=== PATIENT | female | born 1985 | race Caucasian/White ===

== ENCOUNTER 2022-03-30 17:58 | Emergency (ER) | payer MEDICAID ==
[~2022-03-30] VITALS: Ht 157.5 cm; Wt 84.8 kg
--- NOTE | 2022-03-30 18:10 | NUR ---
36 YRSold femal walking IN to ED s/p MVI after mednght MOVING ALL extramity no weeknss no numbness c/o neck pain no
--- NOTE | 2022-03-30 18:25 | NUR ---
sayda horton sent to lab
[2022-03-30] MEDS ORDERED: IBUPROFEN 600 MG TABLET PO ONE (18:30)
--- NOTE | 2022-03-30 18:30 | NUR ---
TO CT SACN OF HEAD AND NECK
[2022-03-30] MEDS ORDERED: IBUPROFEN 600 MG TABLET ONE (18:49)
--- NOTE | 2022-03-30 19:00 | NUR ---
HEARD CERVICAL COLOR APPLED TO PT
--- NOTE | 2022-03-30 19:28 | NUR ---
HAND OFF TO DORIS CADENA
[2022-03-30] MEDS ORDERED: CARI350T PO (19:40)
[2022-03-30] MEDS ORDERED: NAPR-1164 PO (19:40)
--- NOTE | 2022-03-30 20:02 | NUR ---
Patient discharged to home in stable condition. Written and verbal after care instructions given. Patient verbalizes understanding of instruction.
[2022-03-30 20:03] VITALS: BP 150/98
== END 2022-03-30 20:05 | disposition home or self-care (01) ==
LOC: ER 18:04
DX: S13.4XXA Sprain of ligaments of cervical spine, initial encounter (principal); V49.49XA Driver injured in collision with other motor vehicles in traffic accident, initial encounter; Y92.411 Interstate highway as the place of occurrence of the external cause; R05.9 Cough, unspecified; Z20.822 Contact with and (suspected) exposure to COVID-19; I10 Essential (primary) hypertension; J45.909 Unspecified asthma, uncomplicated
CPT/HCPCS: 72125; 84703; 87426; 99284; C9803